=== PATIENT | female | born 2000 | race Caucasian/White ===

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

== ENCOUNTER 2021-07-24 13:44 | Emergency (ER) | payer BC ==
[~2021-07-24 13:44] MED LIST: BACTRIM DS TAB1 EACH PO; CEPHALEXIN500 MG PO; LODINE CAP 300300 MG PO
[2021-07-24 14:15] LABS: HEMOGLOBIN 13.7 gm/dl (12.3-15.3); RED BLOOD COUNT 4.84 M/UL (4.00-5.10); WHITE BLOOD COUNT 7.8 K/UL (4.5-11.0)
[2021-07-24 14:41] LABS: BUN/CREATININE RATIO 25 (0-10)
[2021-07-24] MEDS ORDERED: OMEPRAZOLE20 M1 PO (19:27)
[2021-07-24] MEDS ORDERED: VISTARIL 50 MG50 MG PO (19:36)
== END 2021-07-24 19:55 | disposition home or self-care (01) ==
LOC: ER1 13:44
PROVIDERS: Physician Assistant
DX: R05.9 Cough, unspecified (principal); F41.9 Anxiety disorder, unspecified; Z20.822 Contact with and (suspected) exposure to COVID-19; R00.2 Palpitations; R06.02 Shortness of breath
CPT/HCPCS: 0240U; 71045; 80053; 81001; 84703; 85025; 87086; 93005; 99285